=== PATIENT | female | born 1970 | race Hispanic/Latino ===

== ENCOUNTER 2023-07-12 10:12 | Emergency (ER) | payer SELFPAY ==
[2023-07-12] MEDS: IBUPROFEN 600 MG TAB PO STA (11:04)
[2023-07-12] MEDS ORDERED: NAPROSYN500 MG PO (11:35)
[2023-07-12] MEDS ORDERED: ULTRAM 50MG50 MG PO (11:56)
[2023-07-12 12:11] VITALS: BP 138/84; PULSE 84; RESP 18; TEMP 98.2; O2SAT 100
== END 2023-07-12 12:13 | disposition home or self-care (01) ==
LOC: FSED 10:54
DX: S22.41XA Multiple fractures of ribs, right side, initial encounter for closed fracture (principal); W01.198A Fall on same level from slipping, tripping and stumbling with subsequent striking against other object, initial encounter; Y92.89 Other specified places as the place of occurrence of the external cause
CPT/HCPCS: 71101; 99283